=== PATIENT | female | born 1995 | race African-American/Black ===

== ENCOUNTER 2017-02-13 14:44 | Emergency (ER) | payer OTHER ==
[~2017-02-13] VITALS: Ht 157.5 cm; Wt 56.8 kg
[~2017-02-13 14:44] MED LIST: ALBU8.5H2 INHALATION; METH750T3 PO; NORE-82 PO; OMEP20TA86 PO; OXYC1TAB24 PO; PROM25TA14 PO
[2017-02-13 14:47] VITALS: BP 129/95; PULSE 91; RESP 18; O2SAT 99
[2017-02-13 15:33] LABS: BASOPHILS % (AUTO) 0.5 % (0-3); EOSINOPHILS % (AUTO) 1.9 % (0-5); MONOCYTES % (AUTO) 9.7 % (4-12); Mean Corpuscular Hemoglobin 28.9 pg (27.0-35.0); Mean Corpuscular Volume 85.2 fL (81-100); NEUTROPHILS % (AUTO) 59.4 % (40-74); Platelet Count 382 bil/L (150-400)
[2017-02-13 15:59] LABS: Magnesium 2.2 mg/dL (1.6-2.6)
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
[2017-02-13] MEDS ORDERED: LidocaineVisc 2%:Antacid 1:1 10 mL Syringe PO SCH (17:35)
--- NOTE | 2017-02-13 18:07 | DRSVH ---
PROCEDURE: X-RAY CHEST ONE VIEW ([id number]) INDICATIONS: epigastric pain TECHNIQUE: One view of the chest was acquired. COMPARISON: [facility], CR, XR CHEST 1VW (PORTABLE), 02/25/2016, 21:46. FINDINGS: Surgical changes and devices: None. Lungs and pleura: No pleural effusions or pneumothorax. Lungs are clear. Mediastinum: Mediastinal contours appear normal. Heart size is normal. Bones and chest wall: No suspicious bony lesions. Overlying soft tissues appear unremarkable. IMPRESSION: No acute pulmonary process. Dictated by: Elza Baron M.D. on 02/13/2017 at 18:05 Approved by: Elza Baron M.D. on 02/13/2017 at 18:05
--- NOTE | 2017-02-13 18:08 | DRSVH ---
PROCEDURE: US ABDOMEN, LIMITED ([id number]) INDICATIONS: RUQ pain TECHNIQUE: Real-time focused scanning was performed of the abdomen, with image documentation. COMPARISON: None. FINDINGS: The liver demonstrates diffuse fatty infiltration. The gallbladder is unremarkable. There i s no wall thickening. Common bile duct is within normal limits measuring 4.6 mm. No stones are identi fied. IMPRESSION: Unremarkable exam. Dictated by: Elza Baron M.D. on 02/13/2017 at 18:06 Approved by: Elza Baron M.D. on 02/13/2017 at 18:07
[2017-02-13 18:36] VITALS: BP 121/70; PULSE 100; RESP 18; O2SAT 95
[2017-02-13] MEDS ORDERED: Pantoprazole 40 mg ER24 Tablet PO ONE (18:55)
[2017-02-13] MEDS ORDERED: PANT40TA2 PO (18:59)
[2017-02-13 19:04] VITALS: BP 121/70; PULSE 100; RESP 18; O2SAT 95
== END 2017-02-13 19:05 | disposition home or self-care (01) ==
LOC: SED 14:44
DX: R10.13 Epigastric pain (principal); K21.9 Gastro-esophageal reflux disease without esophagitis; K28.9 Gastrojejunal ulcer, unspecified as acute or chronic, without hemorrhage or perforation; Z79.899 Other long term (current) drug therapy; Z88.4 Allergy status to anesthetic agent; Z88.8 Allergy status to other drugs, medicaments and biological substances